=== PATIENT | female | born 1970 | race Caucasian/White ===

== ENCOUNTER 2024-03-20 07:39 | Day surgery (SDC) | payer OTHER ==
[2024-03-19 14:46] LABS: Absolute Basophils 0.1 K/uL (0-0.5); Absolute Eosinophils 0.1 K/uL (0-0.5); Absolute Lymphocytes (CBC) 1.8 K/uL (0.7-4.9); Absolute Monocytes 0.6 K/uL (0.1-1.3); Absolute Neutrophil 3.2 K/uL (1.8-8.0); Basophils % 1.2 % (0-1.3); Eosinophils % 2.1 % (0-4.4); Hemoglobin 12.7 g/dL (12.0-15.0); MCH 30.3 pg (27.0-35.0); MCHC 33.4 g/dL (32.0-36.0); MCV 90.7 fL (80-100); MPV 8.2 fL (7.6-11.3); Monocytes % 10.9 % (3.3-12.3); Neutrophils % 54.8 % (41.7-73.7); Nucleated Red Blood Cells % 0.3 % (0-0); Platelets 303 thou/uL (152-406); RBC Red Blood Cell Count 4.19 M/uL (3.86-4.86); Red Cell Distribution Width 12.9 % (12.1-15.2)
[2024-03-19 14:51] LABS: Specific Gravity < 1.005 (1.005-1.030)
[2024-03-20] MEDS: NA CHLORIDE 0.9% 1,000 ML ONE ×2 (08:00→10:25)
[2024-03-20] MEDS ORDERED: propofoL 200 MG/20 ML VIAL IV ONE ×4 (09:16→10:25)
[2024-03-20] MEDS ORDERED: LIDOCAINE 1% MPF 5 ML VIAL ONE (09:16)
[2024-03-20 11:26] VITALS: TEMP 97
[2024-03-20 11:43] VITALS: BP 110/72; O2SAT 99
--- NOTE | 2024-03-21 14:10 | EKG ---
Test Date: 2024-03-19 Test Time: 14:22:34 Sausage Stringer: ORTIZ MEASUREMENT RESULTS: Intervals: Rate: 73 WV: 166 QRSD: 88 QT: 414 QTc: 456 [place]: P: 78 WV: 166 QRS: 78 T: 87 INTERPRETIVE STATEMENTS: Normal sinus rhythm Normal ECG No previous ECG available for comparison Electronically Signed On 03-21-24 14:07:02 CDT by Galo Sutton
== END 2024-03-20 11:40 | disposition home or self-care (01) ==
LOC: OR 07:39
PROVIDERS: ATTEND Surgery
PROC: 0DJD8ZZ Inspection of Lower Intestinal Tract, Via Natural or Artificial Opening Endoscopic (ICD-10-PCS; principal; 2024-03-20 09:15)
DX: Z12.11 Encounter for screening for malignant neoplasm of colon (principal); K64.8 Other hemorrhoids
CPT/HCPCS: 93005; 85025; 80048; 36415; 81025; 45378; J2704 ×4; J2001; J7030 ×2

== ENCOUNTER 2024-05-14 06:25 | Day surgery (SDC) | payer OTHER ==
[2024-05-11 10:30] LABS: Absolute Basophils 0.1 K/uL (0-0.5); Absolute Eosinophils 0.1 K/uL (0-0.5); Absolute Lymphocytes (CBC) 2.4 K/uL (0.7-4.9); Absolute Monocytes 0.7 K/uL (0.1-1.3); Absolute Neutrophil 4.1 K/uL (1.8-8.0); Basophils % 1.1 % (0-1.3); Eosinophils % 1.9 % (0-4.4); Hematocrit 40.8 % (36.0-45.0); Hemoglobin 13.2 g/dL (12.0-15.0); MCH 29.6 pg (27.0-35.0); MCHC 32.5 g/dL (32.0-36.0); MCV 91.3 fL (80-100); MPV 8.8 fL (7.6-11.3); Monocytes % 9.3 % (3.3-12.3); Neutrophils % 55.7 % (41.7-73.7); Platelets 231 thou/uL (152-406); RBC Red Blood Cell Count 4.47 M/uL (3.86-4.86); Red Cell Distribution Width 13.1 % (12.1-15.2)
[2024-05-11 10:48] LABS: Anion Gap 9.4 mEq/L (5.0-15.0); Potassium 5.4 mEq/L (3.5-5.1)
[2024-05-11 11:13] LABS: Specific Gravity 1.011 (1.005-1.030); Urine Bilirubin NEGATIVE (Negative); Urine Blood Negative (Negative); Urine Clarity Clear (Clear); Urine Color Light-Yellow (Yellow); Urine Glucose NEGATIVE (Negative); Urine Ketones 1+ (Negative); Urine Microscopic Reflex YN NO UMIC; Urine Nitrite NEGATIVE (Negative); Urine Protein NEGATIVE (Negative); Urine Urobilinogen Normal (Normal)
[2024-05-13 12:28] LABS: Specific Gravity 1.008 (1.005-1.030)
[2024-05-14] MEDS ORDERED: SCOPOLAMINE HYDROBROMIDE PATCH TD ONE (06:40)
[2024-05-14] MEDS: NA CHLORIDE 0.9% 1,000 ML ONE ×2 (06:45→09:00)
[2024-05-14] MEDS ORDERED: MIDAZOLAM HCL 2 MG/2 ML INJ ONE (07:29)
[2024-05-14] MEDS ORDERED: dexAMETHasone 4 MG/ML VIAL ONE ×2 (07:30→08:00)
[2024-05-14] MEDS ORDERED: LIDOCAINE 1% MPF 5 ML VIAL ONE (07:30)
[2024-05-14] MEDS ORDERED: propofoL 200 MG/20 ML VIAL IV ONE (07:30)
[2024-05-14] MEDS ORDERED: ROCURONIUM 50 MG/5 ML VIAL IV ONE ×2 (07:30→08:43)
[2024-05-14] MEDS: CEFAZOLIN SODIUM 2 GM/VIAL ONE (07:30)
[2024-05-14] MEDS ORDERED: ONDANSETRON 4 MG/2 ML VIAL ONE (07:30)
[2024-05-14] MEDS ORDERED: FENTANYL CITR 100 MCG/2 ML ONE ×2 (07:31→09:33)
[2024-05-14] MEDS ORDERED: KETOROLAC 30 MG/ML INJ ONE (08:00)
[2024-05-14] MEDS: BUPIVACAINE 0.25% PF 30 ML VIAL ONE (08:40)
[2024-05-14] MEDS ORDERED: Phenylephrine HCl 10 MG/ML 1 ML VIAL ONE (10:16)
[2024-05-14] MEDS: HYDROCODONE/APAP 5/325 MG TAB ONE (11:40)
[2024-05-14 12:53] VITALS: BP 113/71; O2SAT 99
[2024-05-14 12:56] VITALS: TEMP 99.1
--- NOTE | 2024-05-14 21:03 | OP ---
Date of Procedure: 05/14/2024 Surgeon: Maame Conrad MD Moss Bleacher: Merlene Alicia. Preoperative Diagnoses: Menorrhagia (AUB-A/O), dysmenorrhea, pelvic pain. Postoperative Diagnoses: Menorrhagia (AUB-A/E), dysmenorrhea, pelvic pain, and stage 4 endometriosis . Procedures Performed: 1.Total laparoscopic hysterectomy. 2.Bilateral salpingo-oophorectomy. 3.Extensive endometriosis excision. Anesthesia: General endotracheal. Estimated Blood Loss: 50. Complications: No complications. Drains: No drains. Condition: The patient's condition stable. Specimens: 1.Left anterior cul-de-sac endo. 2.Right lateral wall endometriosis. 3.Ovaries and tubes with uterus and endometriosis of the left ovary, left round ligament, left anter ior and posterior broad ligaments, all included in the specimen. Findings: The patient had endometriosis of the left anterior cul-de-sac right over the bladder. Thi s nodule was excised. The left anterior broad ligament had another nodule between the round and the uterine vessels. This was also excised from the lateral wall included with the specimen. The left r ound ligament closer to the uterus had endometriosis and so round ligament was taken at the level of the internal ring and there was endo on the right lateral wall. On the posterior broad ligament here , the ureter was dissected inferiorly and laterally in order for me to excise this. The implants tena ost touched the right uterosacral ligament. Once this was all excised and handed out, the left poste rior broad ligament endometriosis was resected along with the hysterectomy dissection. There were a few implants immediately medial to the ureter on the left side at the pelvic brim and th spring were noted after the entire procedure was completed. So, I fulgurated these lesions on the perit oneum after picking them up from the underlying tissues and making sure that they were free. Cuff closed with PDS sutures x5, 2 simple at the angles and 3 [id number] in the middle and uter osacral ligament was reattached to the cuff during the closure. Indications: The patient is a 54-year-old female with significant bleeding, dysmenorrhea, and pelvic pain, which was investigated. No endometrial atypia or hyperplasia was noted. Given the degree of pelvic pain and dysmenorrhea, an ablation with endometriosis excision versus a hysterectomy with this were reviewed. The patient is an insulin-dependent diabetic. She has been switched over to an insu cyrus pump for better glycemic control by her information technology program manager and cleared before we would schedule her for the surgery. In the preoperative area, 2 g of Ancef were given. SCDs were placed. Description Of Procedure: A time-out was done after she was taken back to the OR. Preoperative cons ent was done with her by her bedside. She was placed in a supine fashion on the operating table, general anesthesia was given. Placed in a dorsal lithotomy position using Alex stirrups. Abdomen was prepped with ChloraPrep. Vulva, vagina , and perineum with Betadine. She was draped in a sterile fashion. Speculum was placed to expose the cervix. Anterior lip was grasped with single-tooth tenaculum, dila linh to 16-[place], and a large cup uterine manipulator was introduced and fixed in place. Cornelius was p laced to drain the bladder and attached to gravity bag. This area was then draped. 1 cm infraumbilical incision was made with a scalpel using the open laparoscopy technique. Fascia wa s incised. Marcaine was injected at skin and vaginal incision on the abdomen. The fascia was picked up with Yris clamps and incised, tagged 0 Vicryl sutures were placed on both ends. Peritoneum entered bluntly S retractors placed. Jimmy introduced after adequate insufflation . Site of entry was checked and was unremarkable. Upper abdominal surface was mostly unremarkable. Liver and gallbladder, upper diaphragmatic surfaces too. There was 1 tiny right lateral wall implan t was questionable whether it is an endometriosis implant, but appeared to be slightly bumpy without any discoloration, brownish or dark, so this was left alone. A 10 mm suprapubic and two 5 mm left and right lower quadrant ports were placed under direct vision a fter marking. Given ports were placed under direct vision, patient was placed in Trendelenburg posit ion and procedure started. Endometriosis excision was performed first. The left sigmoid colon was adhered to the left round lig ament and left mesosalpinx. This was taken down with sharp dissection. First endometriotic implants could be more noted after this was performed. The IP ligament was also better exposed. At this poi nt, the implants on the anterior left broad ligament and the anterior cul-de-sac were taken down. Th e peritoneum surrounding them was opened up with sharp scissors, then dissection was carried with the LigaSure, the underlying bladder from the endometriotic nodule. This was excised separat jeanne and handed out. Then, the left lateral implant was taken down with the help of the LigaSure from the lateral peritoneum that included with the specimen. Right lateral wall endometriosis was opened up with the peritoneal opening made with sharp scissors. Dissection was carried from underlying sidewall from the ureter and uterine artery and peeled medial ly towards the uterosacral ligament and towards the uterus. This was all taken down and implants chen ded out. After there was excellent hemostasis, then proceed with the hysterectomy. Careful attention was made to take down the round ligament on the left side with the LigaSure, pretty close to the internal ring thereby allowing all the implants to be excised. Then, broad ligament a bit inferiorly. As the dissection was performed already, this was done until the bladder peritoneum. The bladder peritoneum was incised and raised. Bladder dissected inferiorly from the anterior vagi nal wall on the left side. Then, vessels exposed then it came down and opened up the mesosalpinx tow ards the IP. The medial and lateral portions of the peritoneum were opened up. The ureter was disse cted inferiorly and pedicle taken with the LigaSure. The posterior peritoneum opened up dissecting t he implants medially and the lateral wall was free of any implants down to the uterosacral ligament. The ureter was significantly away from my dissection due to all the above proceeding dissection. The vessels were exposed and isolated. After taking the rest of the connective tissue near the vesse ls. These were cauterized with the help of bipolar and then cut with the LigaSure. Went on to the right side, opened the broad ligament by taking down the round ligament. Then, mesosa lpinx opened to perform the IP ligament dissection parallel to it. Then, the peritoneum between the ureter and the IP was opened up. The pedicle was taken down with the help of LigaSure. Posterior pe ritoneum was dissected to the uterosacral. Then, anterior peritoneum on the broad ligament was taken down to connect to the bladder flap. Then, the bladder was dissected completely in the midline and on the right to expose the anterior vaginal wall and the vessels on the right side. The vessels were skeletonized, taken down with the help of the bipolar curved tip and the LigaSure. Then, cardinal l igaments were taken down on each side with bipolar and monopolar hook. Circumferential colpotomy per formed with monopolar hook blade and the specimen detached and removed through the vagina. The vaginal cuff was irrigated. Hemostasis was secured with the curved tip bipolar on both angles an d once this was done, there was excellent hemostasis. Thorough irrigation and suction were performed . Both ureters had good peristalsis from the pelvic brim to the ureteric tunnels. The cuff was then closed with simple 0 PDS sutures at both angles, not tied outside the angle. Then, 3 [id number] ht bringing together both vaginal harrell including the connective tissue and including the distal uter osacral ligament along with this. Three of these sutures were placed. There was excellent support a s well as closure with good viable tissue. The implants at the pelvic brim on the left side were picked up dissected from the underlying ureter and the pelvic brim structures and cauterized with the tip of the bipolar. Once this was performed, this procedure was completed. Pedicles were hemostatic. After thorough irrigation suction were perf ormed, all trocars were removed. The patient was reversed from Trendelenburg. Gas was desufflated. Once infraumbilical port was also removed, then the fascia was closed with the tag 0 Vicryl sutures tied to each other. Simple 0 Vicryl suture at the suprapubic fascial site and skin incisions closed with 4-0 Monocryl in an interrupted fashion in all incisions except running closure at the umbilical site. Vaginal occluder and Cornelius were all removed. Pelvic exam was performed and point C was at -8 or -9. The patient tolerated the procedure well. Instrument, needle, and sponge counts were correct . She was recovered from anesthesia and taken to PACU in stable condition. She will follow up with me in 1 week. I looked for the , but I have not been able to meet him thus far, but we will d ebrief him before patient is discharged. BRUNO/LINDSEY Voice ID: [id number] Report ID: [id number]
== END 2024-05-14 12:27 | disposition home or self-care (01) ==
LOC: OR 06:25
PROVIDERS: ATTEND Obstetrics & Gynecology
PROC: 0UB44ZZ Excision of Uterine Supporting Structure, Percutaneous Endoscopic Approach (ICD-10-PCS; 2024-05-14)
PROC: 0DBW4ZZ Excision of Peritoneum, Percutaneous Endoscopic Approach (ICD-10-PCS; 2024-05-14)
PROC: 0UT94ZZ Resection of Uterus, Percutaneous Endoscopic Approach (ICD-10-PCS; 2024-05-14)
PROC: 0UT74ZZ Resection of Bilateral Fallopian Tubes, Percutaneous Endoscopic Approach (ICD-10-PCS; 2024-05-14)
PROC: 0UT24ZZ Resection of Bilateral Ovaries, Percutaneous Endoscopic Approach (ICD-10-PCS; 2024-05-14)
PROC: 0UBF4ZZ Excision of Cul-de-sac, Percutaneous Endoscopic Approach (ICD-10-PCS; principal; 2024-05-14 07:30)
DX: N92.1 Excessive and frequent menstruation with irregular cycle (principal); N94.6 Dysmenorrhea, unspecified; R10.2 Pelvic and perineal pain; N80.319 Endometriosis of the anterior cul-de-sac, unspecified depth; N80.3C2 Endometriosis of the left uterosacral ligament, unspecified depth; N80.3C1 Endometriosis of the right uterosacral ligament, unspecified depth; D25.9 Leiomyoma of uterus, unspecified; N83.8 Other noninflammatory disorders of ovary, fallopian tube and broad ligament; N83.202 Unspecified ovarian cyst, left side
CPT/HCPCS: 36415; 80048; 81003; 81025; 85025; 86850; 86900; 86901; 88305; 88307; J1100; J2001; J2250; J2371; J2405; J2704; J3010; J7030